=== PATIENT | female | born 1995 | race African-American/Black ===

== ENCOUNTER 2017-03-05 15:30 | Emergency (ER) | payer MEDICAID ==
[~2017-03-05] VITALS: Ht 167.6 cm; Wt 152.0 kg
[2017-03-05 15:46] VITALS: BP 129/93
== END 2017-03-05 18:12 | disposition left against medical advice (07) ==
LOC: ER 17:47
DX: M54.9 Dorsalgia, unspecified (principal); Z53.21 Procedure and treatment not carried out due to patient leaving prior to being seen by health care provider